=== PATIENT | female | born 1980 | race Caucasian/White ===

== ENCOUNTER 2019-10-23 05:25 | Emergency (ER) | payer MEDICAID, OTHER ==
[~2019-10-23] VITALS: Ht 175.3 cm; Wt 82.0 kg
--- NOTE | 2019-10-23 05:31 | NUR ---
TASK RN: PT BIB [facility] FOR A GLF WHEN TRYING TO STEP UP ONTO A CURB. NO LOC REPORT, PT STATES SHE HAS PAIN IN HER R ELBOW, SMALL ABRASION NOTED. PT IS NAD, SKIN COLOR WNL WARM AND DRY, VSS, RESP WNL, PT IS DROWSY AND WANTING TO SLEEP. CALL LIGHT ON LAP, DENIES ADDITIONAL NEEDS AT THIS TIME. RICK HATCH AT BS FOR EVAL AND POC. PT HELPED TO BS COMMODE, URINE SAMPLE OBTAINED. PT HELPED BACK TO [facility]. PT GIVEN WARM BLANKETS FOR COMFORT. WC. BS REPORT TO CAL FIELDS.
[2019-10-23] MEDS ORDERED: NEOSPORIN OINT. PKT 1 PACKET ONE (05:55)
--- NOTE | 2019-10-23 06:52 | NUR ---
PT LAYING IN BED, EYES CLOSED, RESPIRATIONS EVEN AND UNLABORED. BED RAILS UP, CALL LIGHT WITHIN REACH. AT BEDSIDE.
--- NOTE | 2019-10-23 07:01 | NUR ---
Bedside report given to DIAMOND Morris.
--- NOTE | 2019-10-23 07:01 | NUR ---
RECEIVED REPORT FROM POLINA MCCALL RN. PT SLEEPING ON [facility]. NADN. TREJO. FMAILY AT BEDSIDE AND AWARE OF POC.
--- NOTE | 2019-10-23 08:00 | NUR ---
ATTEMPTED TO GET PT OOB. PT REFUSING AT THIS TIME. WILL ATTEMPT AGAIN SHORTLY. FAMILY REMAINS AT BEDSIDE. VSS.
[2019-10-23 08:40] VITALS: BP 107/66
== END 2019-10-23 09:28 | disposition home or self-care (01) ==
LOC: ED 06:44
DX: S50.311A Abrasion of right elbow, initial encounter (principal); F15.129 Other stimulant abuse with intoxication, unspecified; F11.10 Opioid abuse, uncomplicated; F17.290 Nicotine dependence, other tobacco product, uncomplicated; W01.0XXA Fall on same level from slipping, tripping and stumbling without subsequent striking against object, initial encounter; Y93.01 Activity, walking, marching and hiking; Y92.488 Other paved roadways as the place of occurrence of the external cause; Y99.8 Other external cause status
CPT/HCPCS: 99283